=== PATIENT | male | born 1990 | race Two or more races ===

== ENCOUNTER → 2017-01-28 | Outpatient (CLI) | payer OTHER | LOC: FIMAGING 09:54 | PROVIDERS: ATTEND Family Medicine | DX: R10.31 Right lower quadrant pain (principal) ==

== ENCOUNTER 2017-10-18 21:13 | Emergency (ER) | payer OTHER ==
--- NOTE | 2017-10-18 21:32 | EDPHY ---
H & P Stated Complaint: RLQ pain that started 183 Source: Patient Exam Limitations: No limitations - Personal History Current Tetanus/Diphtheria Vaccine: Unsure Current Tetanus Diphtheria and Acellular Pertussis (TDAP): Unsure - Medical/Surgical History Hx Asthma: Yes Hx Chronic Respiratory Disease: No Hx Diabetes: No Hx Cardiac Disease: No Hx Renal Disease: No Hx Cirrhosis: No Hx Alcoholism: No Hx HIV/AIDS: No Hx Splenectomy or Spleen Trauma: No Other PMH: asthma, right eyelid surgery - Social History Smoking Status: Never smoked Time Seen by Provider: 10/18/17 21:32 HPI/ROS: CHIEF COMPLAINT: Right lower quadrant pain HISTORY OF PRESENT ILLNESS: The patient presents to the ED with complaints of right lower quadrant pain that began 2.5 hr prior to arrival. The patient reports that he did eat several hamburgers earlier this evening for dinner. He denies anorexia or fever. He denies vomiting or diarrhea. The patient denies significant past medical history aside from asthma. REVIEW OF SYSTEMS: A comprehensive 10 point review of systems is otherwise negative aside from elements mentioned in the history of present illness. (Samson Rivers) - Physical Exam Exam: General Appearance: Alert, no distress Eyes: Pupils equal and round no pallor or injection ENT, Mouth: Mucous membranes moist Respiratory: There are no retractions, lungs are clear to auscultation Cardiovascular: Regular rate and rhythm Gastrointestinal: Tenderness to palpation in the right lower quadrant, mild rebound Neurological: 5/5 strength noted all 4 extremities Skin: Warm and dry, no rashes Musculoskeletal: Neck is supple nontender Extremities: symmetrical, full range of motion (Samson Rivers) Constitutional: Initial Vital Signs Temperature (C) 36.8 C 10/18/17 21:18 Heart Rate 86 10/18/17 21:18 Respiratory Rate 16 10/18/17 21:18 Blood Pressure 143/96 H 10/18/17 21:18 O2 Sat (%) 95 10/18/17 21:18 O2 Delivery Mode Room Air Allergies/Adverse Reactions: No Known Allergies Allergy (Unverified 10/18/17 21:21) Home Medications: Medication Instructions Recorded Polyethylene Glycol 3350 [Miralax 17 gm PO DAILY #4 pkt 10/18/17 17 gm (*)] Medical Decision Making - Diagnostics Imaging Results: Imaging Impressions Abdomen CT 05/15/18 21:52 Impression: 1. Moderate constipation. 2. Normal appendix. The cecum is positioned very low within the pelvis. These findings were discussed by telephone with Dr. Deandre Rene at [address] 10/18/17 22:18 Impression: 1. Benign exostosis distal medial right femoral shaft. These findings were discussed by telephone with Dr. Deandre Rene at 2245 hrs. ED Course/Re-evaluation: The patient presents the ED for evaluation of 2 hr of right lower quadrant pain. The patient was noted to have a normal CBC, serum chemistries and urinalysis. Given the uncertainty this examination is CT scan of the abdomen pelvis with IV contrast was ordered. While in the CT scan table, I was contacted by the x-ray tech who told me the patient was requesting further evaluation of his right knee for a asymptomatic bony mass on the medial aspect of his right femur. I have ordered a CT scan of the extremity for evaluation of this lesion as well. (Samson Rivers) CT scan abdomen pelvis with IV contrast called to me by Dr. Penn. Negative for acute appendicitis. Constipation present. CT scan of the right lower extremity called to me by Dr. Penn. Shows a benign bone cyst. 2255: I re-evaluate the patient is resting comfortably abdomen is soft nontender. He feels comfortable going home. I went over his CT scan results with him. He understands return emergency room if develops worsening abdominal pain fever vomiting. (Deandre Rene) - Data Points Laboratory Results: Laboratory Results 10/18/17 21:40 10/18/17 21:40 10/18/17 10/18/17 10/18/17 21:40 21:40 21:40 WBC 6.66 10^3/uL 10^3/uL (3.80-9.50) RBC 5.24 10^6/uL 10^6/uL (4.40-6.38) Hgb 15.5 g/dL g/dL (13.7-17.5) Hct 43.7 % % (40.0-51.0) MCV 83.4 fL fL (81.5-99.8) MCH 29.6 pg pg (27.9-34.1) MCHC 35.5 g/dL g/dL (32.4-36.7) RDW 12.0 % % (11.5-15.2) Plt Count 238 10^3/uL 10^3/uL (150-400) MPV 10.2 fL fL (8.7-11.7) Neut % (Auto) 43.0 % % (39.3-74.2) Lymph % (Auto) 43.8 % % (15.0-45.0) Leon % (Auto) 6.8 % % (4.5-13.0) Eos % (Auto) 5.3 % % (0.6-7.6) Baso % (Auto) 0.9 % % (0.3-1.7) Nucleat RBC Rel Count 0.0 % % (0.0-0.2) Absolute Neuts (auto) 2.87 10^3/uL 10^3/uL (1.70-6.50) Absolute Lymphs (auto) 2.92 10^3/uL 10^3/uL (1.00-3.00) Absolute Monos (auto) 0.45 10^3/uL 10^3/uL (0.30-0.80) Absolute Eos (auto) 0.35 10^3/uL 10^3/uL (0.03-0.40) Absolute Basos (auto) 0.06 10^3/uL 10^3/uL (0.02-0.10) Absolute Nucleated RBC 0.00 10^3/uL 10^3/uL (0-0.01) Immature Gran % 0.2 % % (0.0-1.1) Immature Gran # 0.01 10^3/uL 10^3/uL (0.00-0.10) Sodium 142 mEq/L mEq/L (135-145) Potassium 4.0 mEq/L mEq/L (3.3-5.0) Chloride 103 mEq/L mEq/L (97-110) Carbon Dioxide 25 mEq/l mEq/l (22-31) Anion Gap 14 mEq/L mEq/L (8-16) BUN 20 mg/dL mg/dL (7-23) Creatinine 1.0 mg/dL mg/dL (0.7-1.3) Estimated GFR > 60 Glucose 105 mg/dL H mg/dL (70-100) Calcium 10.1 mg/dL mg/dL (8.5-10.4) Urine Color PALE YELLOW Urine Appearance CLEAR Urine pH 7.0 (5.0-7.5) Ur Specific [place] 1.009 (1.002-1.030) Urine Protein NEGATIVE (NEGATIVE) Urine Ketones NEGATIVE (NEGATIVE) Urine Blood NEGATIVE (NEGATIVE) Urine Nitrate NEGATIVE (NEGATIVE) Urine Bilirubin NEGATIVE (NEGATIVE) Urine Urobilinogen NEGATIVE EU EU (0.2-1.0) Ur Leukocyte Esterase NEGATIVE (NEGATIVE) Urine Glucose NEGATIVE (NEGATIVE) Departure - Departure Disposition: Home, Routine, Self-Care Clinical Impression: Constipation Qualifiers: Constipation type: unspecified constipation type Qualified Code(s): K59.00 - Constipation, unspecified Abdominal pain Qualifiers: Abdominal location: right lower quadrant Qualified Code(s): R10.31 - Right lower quadrant pain Condition: Fair Instructions: Acute Abdominal Pain (ED), Constipation (ED) Additional Instructions: 1. Return emergency room if develops worsening abdominal pain fever vomiting. 2. MiraLax as prescribed. 3. Return if worsening symptoms. Referrals: NONE *PRIMARY CARE P,. [Primary Care Provider] - As per Instructions Prescriptions: Polyethylene Glycol 3350 [Miralax 17 gm (*)] 17 gm PO DAILY #4 pkt
[2017-10-18 21:47] LABS: PLATELET COUNT 238 10^3/uL (150-400)
[2017-10-18] MEDS ORDERED: IOPAMIDOL (ISOVUE-300) 100 ML BTL ONE (21:58)
[2017-10-18 23:14] VITALS: BP 143/93
== END 2017-10-18 23:18 | disposition home or self-care (01) ==
DX: K59.00 Constipation, unspecified (principal); J45.909 Unspecified asthma, uncomplicated
CPT/HCPCS: Q9967